=== PATIENT | female | born 1985 | race Caucasian/White ===

== ENCOUNTER 2020-06-01 12:14 | Emergency (ER) | payer BC ==
[~2020-06-01] VITALS: Ht 160 cm; Wt 89.9 kg
[2020-06-01] MEDS ORDERED: LACTATED RINGERS 1,000 ML IV ONE (12:30)
[2020-06-01] MEDS ORDERED: KETOROLAC 30 MG/ML VIAL IVP ONE (12:30)
--- NOTE | 2020-06-01 12:36 | ED EENT ---
History of Present Illness General Chief Complaint: Dental Problems/Pain Stated Complaint: MOUTH PAIN Nursing Triage Note: AMB TO ROOM REPORTS HAD WISDOM TEETH REMOVED ON MAY 28 YESTERDAY STARTED INCREASE IN DENTAL PAIN R SIDE WITH NAUSEA AND FEELING DIZZY REPORTS TOOK LAST HYDROCODOE TODAY. Source: patient Exam Limitations: no limitations History of Present Illness Date Seen by Provider: Jun 01, 2020 Time Seen by Provider: 12:25 Initial Comments Patient resents ER by private conveyance chief complaint 4 days ago she had her right lower wisdom tooth removed and has been doing okay on the clindamycin and hydrocodone however today she says she feels a little off and dehydrated. She does not eat and drink very well because of the pain. She does not feel the pain is well controlled she has a headache on the right side of her head. No sinus pain or discharge. No fevers chills cough shortness of breath nausea vomiting or diarrhea. Allergies and Home Medications Allergies Coded Allergies: Penicillins (Verified Allergy, Unknown, 06/01/20) Home Medications Ondansetron 4 Mg Tab.rapdis, 4 MG PO Q6H PRN for NAUSEA/VOMITING Prescribed by: LAW BOLAND on 06/01/20 1401 Patient Home Medication List Home Medication List Reviewed: Yes Review of Systems Review of Systems Constitutional: No chills, No diaphoresis Eyes: Denies Blindness, Denies Blurred Vision Ears: Denies Dizziness, Denies Pain Nose: denies clots, denies congestion Mouth: see HPI; denies clots, denies loose teeth; pain Throat: denies pain, denies swelling Respiratory: No cough, No phlegm Cardiovascular: No chest pain, No palpitations Gastrointestinal: No abdominal pain, No nausea : No LMP: May 23, 2020 All Other Systems Reviewed Negative Unless Noted: Yes Past Prowihl-Ttcdyz-Jqvpag Hx Patient Social History Alcohol Use: Denies Use Recreational Drug Use: No Smoking Status: Never a Smoker Recent Foreign Travel: No Contact w/Someone Who Travel: No Recent Infectious Disease Expo: No Physical Exam Vital Signs Vital Signs - First Documented 06/01/20 12:21 Temp 36.7 Pulse 77 Resp 18 B/P (MAP) 142/92 (109) Pulse Ox 100 O2 Delivery Room Air Height, Weight, BMI Height: '" Weight: lbs. oz. kg; 35.00 BMI Method: General Appearance: WD/WN, mild distress Eyes: bilateral eye normal inspection, bilateral eye PERRL, bilateral eye EOMI Ears: bilateral ear auricle normal, bilateral ear canal normal, bilateral ear TM normal Nose: normal inspection; No active bleeding, No discharge Mouth/Throat: normal mouth inspection, other (tenderness along the mandible mild right) Neck: non-tender, full range of motion, supple, normal inspection Cardiovascular: normal peripheral pulses, regular rate, rhythm, no edema Respiratory: lungs clear, normal breath sounds, no respiratory distress, no accessory muscle use Neurologic/Psychiatric: alert, normal mood/affect, oriented x 3 Skin: normal color, warm/dry Progress/Results/Core Measures Results/Orders Lab Results Laboratory Tests Test 06/01/20 12:41 Range/Units White Blood Count 5.3 4.3-11.0 10^3/uL Red Blood Count 4.34 L 4.35-5.85 10^6/uL Hemoglobin 14.3 11.5-16.0 G/DL Hematocrit 42 35-52 % Mean Corpuscular Volume 97 80-99 FL Mean Corpuscular Hemoglobin 33 25-34 PG Mean Corpuscular Hemoglobin Concent 34 32-36 G/DL Red Cell Distribution Width 12.3 10.0-14.5 % Platelet Count 207 130-400 10^3/uL Mean Platelet Volume 11.9 H 7.4-10.4 FL Neutrophils (%) (Auto) 68 42-75 % Lymphocytes (%) (Auto) 22 12-44 % Monocytes (%) (Auto) 7 0-12 % Eosinophils (%) (Auto) 2 0-10 % Basophils (%) (Auto) 0 0-10 % Neutrophils # (Auto) 3.6 1.8-7.8 X 10^3 Lymphocytes # (Auto) 1.2 1.0-4.0 X 10^3 Monocytes # (Auto) 0.4 0.0-1.0 X 10^3 Eosinophils # (Auto) 0.1 0.0-0.3 10^3/uL Basophils # (Auto) 0.0 0.0-0.1 10^3/uL Erythrocyte Sedimentation Rate 6 0-20 MM/HR Sodium Level 139 135-145 MMOL/L Potassium Level 3.9 3.6-5.0 MMOL/L Chloride Level 106 98-107 MMOL/L Carbon Dioxide Level 23 21-32 MMOL/L Anion Gap 10 5-14 MMOL/L Blood Urea Nitrogen 8 7-18 MG/DL Creatinine 0.76 0.60-1.30 MG/DL Estimat Glomerular Filtration Rate > 60 BUN/Creatinine Ratio 11 Glucose Level 99 70-105 MG/DL Calcium Level 9.0 8.5-10.1 MG/DL Corrected Calcium 9.0 8.5-10.1 MG/DL Total Bilirubin 0.4 0.1-1.0 MG/DL Aspartate Amino Transf (AST/SGOT) 16 5-34 U/L Alanine Aminotransferase (ALT/SGPT) 15 0-55 U/L Alkaline Phosphatase 64 40-136 U/L C-Reactive Protein High Sensitivity 0.16 0.00-0.50 MG/DL Total Protein 7.0 6.4-8.2 GM/DL Albumin 4.0 3.2-4.5 GM/DL My Orders Orders - LAW BOLAND Ketorolac Injection (Toradol Injection) (06/01/20 12:30) Ed Iv/Invasive Line Start (06/01/20 12:30) Lactated Ringers (Lr 1000 Ml Iv Solution (06/01/20 12:30) Cbc With Automated Diff (06/01/20 12:30) Comprehensive Metabolic Panel (06/01/20 12:30) Hs C Reactive Protein (06/01/20 12:30) Erythrocyte Sedimentation Rate (06/01/20 12:30) Ondansetron Injection (Zofran Injectio (06/01/20 13:00) Medications Given in ED Current Medications Medications Dose Ordered Sig/Neal Route Start Time Stop Time Status Last Admin Dose Admin Ketorolac Tromethamine 30 mg ONCE ONCE IVP 06/01/20 12:30 06/01/20 12:32 DC 06/01/20 12:48 30 MG Lactated Ringer's 1,000 ml @ 0 mls/hr Q0M ONCE IV 06/01/20 12:30 06/01/20 12:32 DC 06/01/20 12:49 1,000 MLS/HR Ondansetron HCl 4 mg ONCE ONCE IVP 06/01/20 13:00 06/01/20 13:01 DC 06/01/20 13:03 4 MG Vital Signs/I&O 06/01/20 06/01/20 12:21 14:11 Temp 36.7 Pulse 77 58 Resp 18 18 B/P (MAP) 142/92 (109) 129/81 Pulse Ox 100 100 O2 Delivery Room Air Room Air Blood Pressure Mean: 109 Progress Progress Note : Time: 13:59 Progress Note After a liter fluids and normal labs patient says she feels much better. We've encouraged to drink more fluids eat more food and continue to take her medications as prescribed. Questions were answered. Return precautions were given. Departure Impression Primary Impression: Dehydration Additional Impression: Pain, dental Disposition: HOME, SELF-CARE Condition: Improved Departure-Patient Inst. Decision time for Depature: 14:00 Patient Instructions: Dental Pain, Dehydration, Adult (DC) Add. Discharge Instructions: Continue drinking sports drinks and make sure you're eating some food. Follow-up with your dentist at your scheduled appointment. Return to the ER if your symptoms worsen or you have other worrisome concerns. Ondansetron one tablet under the tongue every 6 hours as necessary for nausea or vomiting. All discharge instructions reviewed with patient and/or family. Voiced understanding. Scripts Ondansetron (Ondansetron Odt) 4 Mg Tab.rapdis 4 MG PO Q6H PRN for NAUSEA/VOMITING, #8 TAB 0 Refills Prov: LAW BOLAND 06/01/20 Work/School Note: Work Release Form Date Seen in the Emergency Department: Jun 01, 2020 Return to Work: Jun 01, 2020 Restrictions: Need Release from Doctor LAW BOLAND Jun 01, 2020 12:36
[2020-06-01 12:52] LABS: BASOPHILS % (AUTO) 0 % (0-10); EOSINOPHILS # (AUTO) 0.1 10^3/uL (0.0-0.3); EOSINOPHILS % (AUTO) 2 % (0-10); HEMATOCRIT 42 % (35-52); HEMOGLOBIN 14.3 G/DL (11.5-16.0); LYMPHOCYTES # (AUTO) 1.2 X 10^3 (1.0-4.0); LYMPHOCYTES % (AUTO) 22 % (12-44); MEAN CORPUSCULAR HEMOGLOBIN 33 PG (25-34); MEAN CORPUSCULAR HGB CONC 34 G/DL (32-36); MEAN CORPUSCULAR VOLUME 97 FL (80-99); MEAN PLATELET VOLUME 11.9 FL (7.4-10.4); MONOCYTES # (AUTO) 0.4 X 10^3 (0.0-1.0); MONOCYTES % (AUTO) 7 % (0-12); NEUTROPHILS # (AUTO) 3.6 X 10^3 (1.8-7.8); NEUTROPHILS % (AUTO) 68 % (42-75); PLATELET COUNT 207 10^3/uL (130-400); RED CELL DISTRIBUTION WIDTH 12.3 % (10.0-14.5); WHITE BLOOD COUNT 5.3 10^3/uL (4.3-11.0)
[2020-06-01] MEDS ORDERED: ONDANSETRON 4 MG/2 ML (SDV) Z0FRAN IVP ONE (13:00)
[2020-06-01 13:08] LABS: CHLORIDE 106 MMOL/L (98-107); POTASSIUM 3.9 MMOL/L (3.6-5.0); SODIUM 139 MMOL/L (135-145)
[2020-06-01 13:11] LABS: GLUCOSE 99 MG/DL (70-105)
[2020-06-01 13:12] LABS: BILIRUBIN,TOTAL 0.4 MG/DL (0.1-1.0); CARBON DIOXIDE 23 MMOL/L (21-32)
[2020-06-01 13:14] LABS: ALKALINE PHOSPHATASE 64 U/L (40-136); CREATININE SERUM 0.76 MG/DL (0.60-1.30); GFR ESTIMATED > 60
[2020-06-01 13:15] LABS: BUN/CREATININE RATIO 11
[2020-06-01 13:17] LABS: ALANINE AMINOTRANSFERASE 15 U/L (0-55)
--- NOTE | 2020-06-01 13:23 | NUR ---
WARM BLANKET GIVEN.
[2020-06-01 13:25] LABS: ERYTHROCYTE SEDIMENTATION RATE 6 MM/HR (0-20)
--- NOTE | 2020-06-01 13:31 | NUR ---
TO ROOM FLUIDS CON'T TO INFUSE. REPORTS FEELING BETTER.
[2020-06-01] MEDS ORDERED: ONDA4TAB11 PO (14:01)
[2020-06-01 14:11] VITALS: BP 129/81
== END 2020-06-01 14:11 | disposition home or self-care (01) ==
LOC: ER 12:17
DX: E86.0 Dehydration (principal); K08.89 Other specified disorders of teeth and supporting structures; Z88.0 Allergy status to penicillin
CPT/HCPCS: 36415; 80053; 85025; 85652; 86141

== ENCOUNTER → 2022-09-03 | Outpatient (CLI) | payer BC ==
[~2022-09-03] MED LIST: ONDA4TAB11 PO
== END ==
LOC: LABNPT 15:58
PROVIDERS: ATTEND Registered Nurse Emergency
DX: Z01.89 Encounter for other specified special examinations (principal)
CPT/HCPCS: 87491; 87591

== ENCOUNTER → 2022-09-03 | Outpatient (CLI) | payer BC | LOC: LAB FS 10:18 | PROVIDERS: ATTEND Registered Nurse Emergency | DX: N89.8 Other specified noninflammatory disorders of vagina (principal); R10.9 Unspecified abdominal pain; R03.0 Elevated blood-pressure reading, without diagnosis of hypertension | CPT/HCPCS: 87210 ==

== ENCOUNTER 2023-04-12 00:33 | Emergency (ER) | payer BC, MEDICAID ==
[~2023-04-12] VITALS: Ht 160 cm; Wt 88.1 kg
[2023-04-12] MEDS ORDERED: PANTOPRAZOLE 40 MG (PROTONIX) VIAL IV STA (00:49)
[2023-04-12] MEDS ORDERED: NS IV 1000 ML 1,000 ML IV STA (00:49)
[2023-04-12 00:56] LABS: BASOPHILS % (AUTO) 1 % (0-10); EOSINOPHILS # (AUTO) 0.3 10^3/uL (0.0-0.3); EOSINOPHILS % (AUTO) 4 % (0-10); HEMATOCRIT 43 % (35-52); HEMOGLOBIN 14.4 g/dL (11.5-16.0); LYMPHOCYTES # (AUTO) 2.4 10^3/uL (1.0-4.0); LYMPHOCYTES % (AUTO) 28 % (12-44); MEAN CORPUSCULAR HEMOGLOBIN 32 pg (25-34); MEAN CORPUSCULAR HGB CONC 34 g/dL (32-36); MEAN CORPUSCULAR VOLUME 96 fL (80-99); MONOCYTES # (AUTO) 0.6 10^3/uL (0.0-1.0); MONOCYTES % (AUTO) 8 % (0-12); NEUTROPHILS % (AUTO) 60 % (42-75); PLATELET COUNT 239 10^3/uL (130-400); WHITE BLOOD COUNT 8.4 10^3/uL (4.3-11.0)
--- NOTE | 2023-04-12 00:58 | ED General ---
General Stated Complaint: CHEST PAIN|BACK PAIN Source of Information: Patient History of Present Illness Date Seen by Provider: April 12, 2023 Time Seen by Provider: 00:36 Initial Comments 37-year-old female presenting with complaints of epigastric burning pain going into her back. She states that this started 2 months ago but had not been as severe as it is tonight. It comes and goes at different times of the day and night. It does not seem to be affected by specific foods or things that she eats or drinks. She felt like it started while she was on Mounjaro but it persisted after stopping Mounjaro. She had taken Tums previously and that has not seemed to help. Tonight the pain seemed to be worse and was not going away. She had tried Tums and it still did not help the pain. It seemed to be worse tonight when she tried to lay down. She has had no surgeries on her belly in t he past. She does have an IUD in place only has some occasional spotting. She states that she is not currently having any spotting. She states that she has been too busy with her 4 children and her work to get in to be seen in the clinic about her symptoms. She reports that she May need to go be seen about it but just never found the time. Tonight because the pain was not going away it was worse than before as well as she could not fall asleep she came to the emergency department. Timing/Duration: Intermittent (For the last 2 months but has been constant for the last hour) Severity: Moderate Modifying Factors: worse with Other (Tonight positions seems to make it worse when she lays back.) Associated Systoms: No Cough, No Diaphoresis, No Fever/Chills, No Headaches, No Loss of Appetite, No Malaise, No Nausea/Vomiting, No Rash, No Seizure, No Shortness of Air, No Syncope, No Weakness Allergies and Home Medications Allergies Coded Allergies: Penicillins (Verified Allergy, Unknown, 06/01/20) Patient Home Medication List Home Medication List Reviewed: Yes Hydrocodone/Acetaminophen (Hydrocodone-Acetamin 5-325 mg) 5 Mg-325 Mg Tablet, 1 TAB PO Q6H PRN for PAIN SEVERE Prescribed by: JACI MCKEON on 04/12/23 0236 Discontinued Medications Ondansetron (Ondansetron Odt) 4 Mg Tab.rapdis, 4 MG PO Q6H PRN for NAUSEA/VOMITING Prescribed by: LAW BOLAND on 06/01/20 1401 Review of Systems Review of Systems Constitutional: No chills, No fever EENTM: no symptoms reported Respiratory: no symptoms reported Cardiovascular: no symptoms reported Gastrointestinal: see HPI Genitourinary: no symptoms reported Musculoskeletal: no symptoms reported Skin: No rash Psychiatric/Neurological: No Symptoms Reported Past Ecsensl-Ujcrtm-Vkbhkk Hx Patient Social History Tobacco Use?: No Use of E-Cig and/or Vaping dev: No Substance use?: No Alcohol Use?: No Past Medical History Surgeries: No Physical Exam Vital Signs Vital Signs - First Documented 04/12/23 00:37 Temp 36.4 Pulse 91 Resp 14 B/P (MAP) 141/88 (105) Pulse Ox 100 O2 Delivery Room Air Capillary Refill : Height, Weight, BMI Height: '" Weight: lbs. oz. kg; 35.00 BMI Method: General Appearance: No Apparent Distress, WD/WN HEENT: PERRL/EOMI, Pharynx Normal Neck: Full Range of Motion, Normal Inspection, Non Tender, Supple Respiratory: Chest Non Tender, Lungs Clear, Normal Breath Sounds, No Accessory Muscle Use, No Respiratory Distress Cardiovascular: Regular Rate, Rhythm, Normal Peripheral Pulses Gastrointestinal: Normal Bowel Sounds, No Pulsatile Mass, Non Tender, Soft Rectal: Deferred Extremity: Normal Capillary Refill, Normal Inspection, No Calf Tenderness, No Pedal Edema Neurologic/Psychiatric: Alert, Oriented x3, languages and literature instructor II-XII Norm as Tested Skin: Normal Color, Warm/Dry Progress/Results/Core Measures Suspected Sepsis SIRS Temperature: Pulse: Respiratory Rate: Laboratory Tests 04/12/23 00:43: White Blood Count 8.4 Blood Pressure / Mean: Laboratory Tests 04/12/23 00:43: Creatinine 0.65, Platelet Count 239, Total Bilirubin 0.2 Results/Orders Lab Results Laboratory Tests Test 04/12/23 00:43 04/12/23 02:00 Range/Units White Blood Count 8.4 4.3-11.0 10^3/uL Red Blood Count 4.46 3.80-5.11 10^6/uL Hemoglobin 14.4 11.5-16.0 g/dL Hematocrit 43 35-52 % Mean Corpuscular Volume 96 80-99 fL Mean Corpuscular Hemoglobin 32 25-34 pg Mean Corpuscular Hemoglobin Concent 34 32-36 g/dL Red Cell Distribution Width 12.7 10.0-14.5 % Platelet Count 239 130-400 10^3/uL Mean Platelet Volume 12.0 9.0-12.2 fL Immature Granulocyte % (Auto) 0 % Neutrophils (%) (Auto) 60 42-75 % Lymphocytes (%) (Auto) 28 12-44 % Monocytes (%) (Auto) 8 0-12 % Eosinophils (%) (Auto) 4 0-10 % Basophils (%) (Auto) 1 0-10 % Neutrophils # (Auto) 5.0 1.8-7.8 10^3/uL Lymphocytes # (Auto) 2.4 1.0-4.0 10^3/uL Monocytes # (Auto) 0.6 0.0-1.0 10^3/uL Eosinophils # (Auto) 0.3 0.0-0.3 10^3/uL Basophils # (Auto) 0.0 0.0-0.1 10^3/uL Immature Granulocyte # (Auto) 0.0 0.0-0.1 10^3/uL Sodium Level 138 135-145 MMOL/L Potassium Level 3.3 L 3.6-5.0 MMOL/L Chloride Level 101 98-107 MMOL/L Carbon Dioxide Level 26 21-32 MMOL/L Anion Gap 11 5-14 MMOL/L Blood Urea Nitrogen 16 7-18 MG/DL Creatinine 0.65 0.60-1.30 MG/DL Estimat Glomerular Filtration Rate 118 BUN/Creatinine Ratio 25 Glucose Level 98 70-105 MG/DL Calcium Level 9.7 8.5-10.1 MG/DL Corrected Calcium 9.6 8.5-10.1 MG/DL Total Bilirubin 0.2 0.1-1.0 MG/DL Aspartate Amino Transf (AST/SGOT) 14 5-34 U/L Alanine Aminotransferase (ALT/SGPT) 12 0-55 U/L Alkaline Phosphatase 96 40-136 U/L Total Protein 7.1 6.4-8.2 GM/DL Albumin 4.1 3.2-4.5 GM/DL Lipase 47 8-78 U/L Urine Color YELLOW Urine Clarity CLEAR Urine pH 6.0 5-9 Urine Specific [place] 1.010 L 1.016-1.022 Urine Protein NEGATIVE NEGATIVE Urine Glucose (UA) NEGATIVE NEGATIVE Urine Ketones NEGATIVE NEGATIVE Urine Nitrite NEGATIVE NEGATIVE Urine Bilirubin NEGATIVE NEGATIVE Urine Urobilinogen 0.2 < = 1.0 MG/DL Urine Leukocyte Esterase TRACE H NEGATIVE Urine RBC (Auto) NEGATIVE NEGATIVE Urine RBC NONE /HPF Urine WBC 2-5 /HPF Urine Squamous Epithelial Cells 2-5 /HPF Urine Crystals NONE /LPF Urine Bacteria MODERATE H /HPF Urine Casts NONE /LPF Urine Mucus NEGATIVE /LPF Urine Culture Indicated NO My Orders Orders - JACI MCKEON MD Comprehensive Metabolic Panel (04/12/23 00:49) Lipase (04/12/23 00:49) Ua Culture If Indicated (04/12/23 00:49) Ed Iv/Invasive Line Start (04/12/23 00:49) Cbc With Automated Diff (04/12/23 00:49) Ns Iv 1000 Ml (Sodium Chloride 0.9%) (04/12/23 00:49) Pantoprazole Injection (Protonix Injecti (04/12/23 00:49) Lidocaine 2% Viscous 15 Ml (Xylocaine Vi (04/12/23 01:00) Antacid Suspension (Mylanta Suspension (04/12/23 01:00) Ct Abdomen/Pelvis W (04/12/23 00:50) Iohexol Injection (Omnipaque 350 Mg/Ml 1 (04/12/23 01:30) Received Contrast (Hold Metformin- Contr (04/12/23 01:30) Sodium Chloride Flush (Catheter Flush Sy (04/12/23 01:30) Ns (Ivpb) (Sodium Chloride 0.9% Ivpb Bag (04/12/23 01:30) Ekg Tracing (04/12/23 01:59) Monitor-Rhythm Ecg Trace Only (04/12/23 01:59) Medications Given in ED Current Medications Medications Dose Ordered Sig/Neal Route Start Time Stop Time Status Last Admin Dose Admin Al Hydrox/Mg Hydrox/Simethicone 30 ml ONCE ONCE PO 04/12/23 01:00 04/12/23 01:01 DC 04/12/23 01:01 30 ML Iohexol 100 ml ONCE ONCE IV 04/12/23 01:30 04/12/23 01:31 DC 04/12/23 01:46 80 ML Lidocaine HCl 15 ml ONCE ONCE PO 04/12/23 01:00 04/12/23 01:01 DC 04/12/23 01:01 15 ML Sodium Chloride 10 ml NEEDED PRN IV 04/12/23 01:30 04/12/23 01:47 10 ML Sodium Chloride 100 ml ONCE ONCE IV 04/12/23 01:30 04/12/23 01:31 DC 04/12/23 01:47 100 ML Vital Signs/I&O 04/12/23 00:37 Temp 36.4 Pulse 91 Resp 14 B/P (MAP) 141/88 (105) Pulse Ox 100 O2 Delivery Room Air Capillary Refill : Progress Note #1: Progress Note Potential diagnosis of pancreatitis, gastritis, peptic ulcer disease, GERD, colitis, diverticulitis, esophagitis, pyelonephritis. Obtain peripheral IV access and send labs for complete blood count, comprehensive metabolic profile, lipase, urinalysis. Placed on cardiac telemetry monitoring and initially my interpretation was that she showed a sinus rhythm with a heart rate in the 60s. Obtain electrocardiogram since she was complaining of epigastric pain. Order CT scan of the abdomen and pelvis with IV contrast to evaluate for possible pathology in the abdomen or pelvis to be causing her symptoms. Administer normal saline 1 L IV fluid bolus for hydration, pantoprazole 40 mg IV for possible gastritis and for the burning pain. Ordered a GI cocktail with lidocaine and Mylanta to again try and help with the burning pain. If these medicines do not help then could administer dose of Toradol to try and help with the pain. Progress Note #2: Time: 00:59 Progress Note Complete blood count shows a normal white blood cell count of 8.4. She was not anemic with a hemoglobin of 14.3. She had a normal differential of her white blood cells. Awaiting comprehensive metabolic profile and urinalysis and lipase. Also awaiting CT scan with IV contrast of the abdomen and pelvis Progress Note #3: Time: 01:57 Progress Note Comprehensive metabolic profile did not show any acute significant electrolyte abnormalities, renal function was normal with creatinine of 0.65. Her glucose was not elevated at 98. Her lipase was normal at 47 and not indicating p ancreatitis. Her liver enzymes were in the normal range and not elevated. On my personal review and interpretation of her CT scan of the abdomen and pelvis with IV contrast I did not appreciate any acute obstruction or mass. She did have a dilated gallbladder and appeared that she might have some sludge in the gallbladder. I did not appreciate any pericholecystic fluid or signs of obstruction Progress Note #4: Time: 02:22 Progress Note The urinalysis had a specific gravity of 1.010. She had trace leukocyte esterase with moderate bacteria but no nitrites or leukocyte esterase to in dicate UTI. Her CT scan of the abdomen and pelvis with IV contrast was read out by the [facility] service as suspected acute cholecystitis with no gross radiopaque gallstones and a 5 mm common bile duct. Possible tilted IUD within the uterus. Patient reports that her pain gradually resolved after receiving medications here in the ED. Will vp & general counsel patient on gallbladder diet and recommend follow-up with surgeon to schedule removal of her gallbladder. Counseled to return or be seen sooner if having worsening pain or new symptoms. Will provide a prescription for hydrocodone if needed for severe pain. ECG Initial ECG Impression Date: April 12, 2023 Initial ECG Impression Time: 00:46 Initial ECG Rate: 74 Initial ECG Rhythm: Normal Sinus Initial ECG Comparisson: No Previous ECG Available Comment On my personal interpretation and review her electrocardiogram shows normal sinus rhythm with a sinus arrhythmia. Her heart rate is 74 bpm. [place] interval [address] elevation. QT interval 364 ms with a QTc interval 392 ms. She has no prior tracing available for comparison. Diagnostic Imaging Diagonstic Imaging: CT Plain Films/CT/US/NM/MRI: abdomen, pelvis Comments CT scan of the abdomen and pelvis with IV contrast Impression: Suspected acute cholecystitis. No radiopaque gallstones seen. 5 mm common bile duct. Tilted IUD within the uterus. Read by radiologist Dr. Zach Sommers MD at [phone] and faxed at [phone] Reviewed: Reviewed [facility] Study, Reviewed by Me Departure Impression Primary Impression: Cholecystitis Additional Impression: Epigastric abdominal pain Disposition: 01 HOME, SELF-CARE Condition: Improved Departure-Patient Inst. Decision time for Depature: 02:31 Referrals: JERMAINE BOSCH AMANDA S APRN (PCP) Primary Care Physician Patient Instructions: Gallbladder Diet, Gallstones ED, Gastritis ED, Ulcer and Gastritis Diet Add. Discharge Instructions: Stay well-hydrated and drink plenty of fluids. Follow a low-fat bland diet to help avoid recurrent episodes of pain. If you are having severe pain you could try taking Aleve [id number]. You could also try hydrocodone/acetaminophen for severe pain. Call the general surgeon to arrange an appointment for evaluation and scheduling to have your gallbladder removed. Let them know that you were seen in the emergency department today and had findings for inflamed gallbladder on CT scan. Depending on your insurance you may need to see your primary care provider for referral to the surgeon. If you are having more severe pain that is not going away with the medication, fever over 101 Fahrenheit, uncontrolled nausea and vomiting these would all be reasons to be seen immediately as you may have another gallbladder attack and need IV antibiotics for additional medication. Scripts Hydrocodone/Acetaminophen (Hydrocodone-Acetamin 5-325 mg) 5 Mg-325 Mg Tablet 1 TAB PO Q6H PRN for PAIN SEVERE for 3 Days, #12 TAB 0 Refills Prov: JACI MCKEON MD 04/12/23 JACI MCKEON MD April 12, 2023 00:58
[2023-04-12] MEDS ORDERED: ANTACID SUSP 30 ML UDC (MYLANTA) PO ONE (01:00)
[2023-04-12] MEDS ORDERED: LIDOCAINE 2% VISCOUS 15 ML UDC PO ONE (01:00)
[2023-04-12 01:20] LABS: ALBUMIN 4.1 GM/DL (3.2-4.5); BILIRUBIN,TOTAL 0.2 MG/DL (0.1-1.0); CALCIUM 9.7 MG/DL (8.5-10.1); CREATININE SERUM 0.65 MG/DL (0.60-1.30); POTASSIUM 3.3 MMOL/L (3.6-5.0); TOTAL PROTEIN 7.1 GM/DL (6.4-8.2)
[2023-04-12] MEDS ORDERED: CATHETER FLUSH 10 ML SYR IV PRN (01:30)
[2023-04-12] MEDS ORDERED: IOHEXOL 350 MG/ML 100 ML (OMNIPAQUE 350) VIAL IV ONE (01:30)
[2023-04-12] MEDS ORDERED: HOLD METFORMIN - RECEIVED CONTRAST 20 ML VIAL IV SCH (01:30)
[2023-04-12] MEDS ORDERED: NS 100 ML (IVPB) BAG IV ONE (01:30)
[2023-04-12 02:06] LABS: BILIRUBIN,URINE NEGATIVE (NEGATIVE); CLARITY,URINE CLEAR; COLOR,URINE YELLOW; GLUCOSE, URINE (UA) NEGATIVE (NEGATIVE); KETONES,URINE NEGATIVE (NEGATIVE); LEUKOCYTE ESTERASE ,URINE TRACE (NEGATIVE); NITRITE,URINE NEGATIVE (NEGATIVE); PROTEIN,URINE NEGATIVE (NEGATIVE)
[2023-04-12 02:17] LABS: BACTERIA,URINE MODERATE /HPF
[2023-04-12] MEDS ORDERED: ACHD5005 PO (02:36)
[2023-04-12 02:50] VITALS: BP 126/77
--- NOTE | 2023-04-12 06:33 | Diagnostic Imaging Report ---
PROCEDURE: CT abdomen and pelvis with contrast. TECHNIQUE: Multiple contiguous axial images were obtained through the abdomen and pelvis after administration of intravenous contrast. Auto Exposure Controls were utilized during the CT exam to meet ALARA standards for radiation dose reduction. All CT scans use one or more of the following dose optimizing techniques: automated exposure control, MA and/or KvP adjustment based on patient size and exam type or iterative reconstruction. INDICATION: Epigastric pain Lung bases are clear. Liver appears normal. Gallbladder appears normal. Pancreas appears normal. Spleen is not enlarged. Kidneys and adrenals appear normal. Aorta and IVC appear normal. There is no mesenteric or lymphadenopathy. Small bowel is not dilated. There is no evidence for appendicitis. Colon appears normal. There is an IUD in uterus. Adnexa are unremarkable. There is no intraperitoneal free air or free fluid. IMPRESSION: Compared to preliminary report I do not believe there is any evidence for acute cholecystitis. Ultrasound might be helpful to further evaluate in that regard. No acute abnormality seen. Dictated by: Dictated on workstation # [id number]
== END 2023-04-12 02:50 | disposition home or self-care (01) ==
LOC: EDUNIT# 00:33 → ER FS 00:35
DX: K81.9 Cholecystitis, unspecified (principal); I49.8 Other specified cardiac arrhythmias; Z28.310 Unvaccinated for COVID-19
CPT/HCPCS: 36415; 74177; 80053; 81000; 83690; 85025; 93005; 93041